=== PATIENT | male | born 1950 | race Caucasian/White ===

== ENCOUNTER 2023-01-11 14:55 | Outpatient (REF) | payer MEDICARE, OTHER, SELFPAY ==
[2023-01-11 14:39] LABS: Abs Immature Grans 0.02 10^3/uL (0.0-0.06); Absolute Basophil Count 0.04 10^3/uL (0.0-0.2); Absolute Eosinophil Count 0.04 10^3/uL (0.0-0.7); Absolute Lymphocyte Count 3.69 10^3/uL (1.2-3.4); Absolute Monocyte Count 0.79 10^3/uL (0.1-0.8); Absolute Neutrophil Count 2.97 10^3/uL (1.2-6.7); Basophils % 0.5; Eosinophils % 0.5; HCT 47.3 % (40.0-50.0); HGB 16.3 g/dL (13.5-17.5); Immature Grans % 0.3; Lymphocytes % 48.9; MCH 35.1 pg (27.0-33.0); MCHC 34.5 % (32.0-36.0); MCV 102 fL (80-95); MPV 10.6 fL (8.0-11.0); Monocytes % 10.5; Neutrophils % 39.3; Platelet Count 112 10^3/uL (130-400); RBC 4.64 10^6/uL (4.36-5.78); RDW 12.4 % (11.8-14.1); RDW-SD 46.6 fL; WBC 7.55 10^3/uL (4.4-10.8)
[2023-01-11 15:02] LABS: VALPROIC ACID 71.6 ug/mL
[2023-01-11 15:08] LABS: TSH (W/Ref FT4) 1.95 uIU/mL (0.36-3.74)
[2023-01-11 15:32] LABS: Vitamin D 25 Total 113.4 ng/mL (30-100)
== END 2023-01-11 14:56 | disposition home or self-care (01) ==
LOC: NCHCN 14:55
PROVIDERS: Visit Provider Family Medicine
DX: E07.9 Disorder of thyroid, unspecified (principal); E55.9 Vitamin D deficiency, unspecified; I10 Essential (primary) hypertension; Z51.81 Encounter for therapeutic drug level monitoring; Z79.899 Other long term (current) drug therapy; F31.89 Other bipolar disorder
CPT/HCPCS: 82306; 80164; 84443; 85025

== ENCOUNTER 2023-11-15 15:19 | Outpatient (REF) | payer MEDICARE, OTHER, SELFPAY ==
[2023-11-15 21:19] LABS: HCT 45.6 % (40.0-50.0); HGB 15.1 g/dL (13.5-17.5); MCH 34.6 pg (27.0-33.0); MCHC 33.1 % (32.0-36.0); MCV 105 fL (80-95); MPV 10.9 fL (8.0-11.0); Platelet Count 118 10^3/uL (130-400); RBC 4.36 10^6/uL (4.36-5.78); RDW 12.4 % (11.8-14.1); RDW-SD 48.8 fL; WBC 7.18 10^3/uL (4.4-10.8)
[2023-11-15 22:08] LABS: ALT 13 U/L (16-63); AST 19 U/L (15-37); Albumin 3.3 g/dL (3.4-5.0); Alkaline Phosphatase 148 U/L (46-116); Anion Gap 9.5 mmol/L (3-11); BUN 16 mg/dL (7-18); Bilirubin, Total 0.4 mg/dL (0.2-1.0); CO2 26.5 mmol/L (21.0-32.0); CREATININE 1.4 mg/dL (0.70-1.30); Calcium 8.8 mg/dL (8.5-10.1); Chloride 109 mmol/L (98-107); Estimated GFR 52.74 (mL/min/1.73m2); Glucose 98 mg/dL (74-106); Potassium 3.9 mmol/L (3.5-5.1); Sodium 145 mmol/L (136-145); TSH 2.31 uIU/Ml (0.36-3.74); Total Protein 7.3 g/dL (6.4-8.2)
== END 2023-11-15 15:20 | disposition home or self-care (01) ==
LOC: NCHCN 15:19
PROVIDERS: PCP Family Medicine; Visit Provider Family Medicine
DX: E03.9 Hypothyroidism, unspecified (principal); F31.89 Other bipolar disorder; Z79.899 Other long term (current) drug therapy; R79.89 Other specified abnormal findings of blood chemistry
CPT/HCPCS: 80053; 85027; 84443

== ENCOUNTER 2024-10-23 12:11 | Outpatient (REF) | payer MEDICARE, OTHER, SELFPAY ==
[2024-10-23 14:41] LABS: Abs Immature Grans 0.01 10^3/uL (0.0-0.06); Absolute Basophil Count 0.03 10^3/uL (0.0-0.2); Absolute Eosinophil Count 0.09 10^3/uL (0.0-0.7); Absolute Lymphocyte Count 2.97 10^3/uL (1.2-3.4); Absolute Monocyte Count 0.58 10^3/uL (0.1-0.8); Absolute Neutrophil Count 3.18 10^3/uL (1.2-6.7); Basophils % 0.4 %; Eosinophils % 1.3 %; HGB 14.7 g/dL (13.5-17.5); Immature Grans % 0.1 %; Lymphocytes % 43.3 %; MCH 34.8 pg (27.0-33.0); MCHC 33.4 % (32.0-36.0); MCV 104 fL (80-95); MPV 10.7 fL (8.0-11.0); Monocytes % 8.5 %; Neutrophils % 46.4 %; Platelet Count 116 10^3/uL (130-400); RBC 4.22 10^6/uL (4.36-5.78); RDW 12.5 % (11.8-14.1); RDW-SD 48.1 fL; WBC 6.86 10^3/uL (4.4-10.8)
[2024-10-23 14:55] LABS: ALT 9 U/L (16-63); AST 21 U/L (15-37); Albumin 3.1 g/dL (3.4-5.0); Alkaline Phosphatase 119 U/L (46-116); Anion Gap 5.1 mmol/L (3-11); BUN 16 mg/dL (7-18); Bilirubin, Total 0.58 mg/dL (0.2-1.0); CO2 27.9 mmol/L (21.0-32.0); CREATININE 1.3 mg/dL (0.70-1.30); Calcium 8.9 mg/dL (8.5-10.1); Chloride 109 mmol/L (98-107); Estimated GFR 57.29 (mL/min/1.73m2); Glucose 100 mg/dL (74-106); Potassium 4.8 mmol/L (3.5-5.1); Sodium 142 mmol/L (136-145); TSH (W/Ref FT4) 4.06 uIU/mL (0.36-3.74)
[2024-10-24 12:57] LABS: FREE T4 0.94 ng/dL (0.76-1.46)
== END 2024-10-23 12:12 | disposition home or self-care (01) ==
LOC: NCHCN 12:11
PROVIDERS: PCP Family Medicine; Visit Provider Family Medicine
DX: E03.9 Hypothyroidism, unspecified (principal); R42 Dizziness and giddiness
CPT/HCPCS: 80053; 84439; 84443; 85025

== ENCOUNTER 2024-12-09 16:00 | Outpatient (REF) | payer MEDICARE, OTHER, SELFPAY ==
[2024-12-09 21:59] LABS: TSH (W/Ref FT4) 2.97 uIU/mL (0.36-3.74)
== END 2024-12-09 16:01 | disposition home or self-care (01) ==
LOC: NCHCN 16:00
PROVIDERS: PCP Family Medicine; Visit Provider Family Medicine
DX: E03.9 Hypothyroidism, unspecified (principal)
CPT/HCPCS: 84443

== ENCOUNTER 2025-05-11 16:34 | Outpatient (REF) | payer MEDICARE, OTHER, SELFPAY ==
[2025-05-11 21:42] LABS: TSH (W/Ref FT4) 2.40 uIU/mL (0.36-3.74)
== END 2025-05-11 16:35 | disposition home or self-care (01) ==
LOC: NCHCN 16:34
PROVIDERS: PCP Family Medicine; Visit Provider Family Medicine
DX: E03.9 Hypothyroidism, unspecified (principal)
CPT/HCPCS: 84443

== ENCOUNTER → 2025-05-25 11:02 | Outpatient (BNVA) | payer MEDICARE, OTHER, SELFPAY | PROVIDERS: PCP Family Medicine; Referring Provider Family Medicine; Visit Provider Nurse Practitioner Gerontology | DX: N40.1 Benign prostatic hyperplasia with lower urinary tract symptoms (principal); N13.8 Other obstructive and reflux uropathy; R39.15 Urgency of urination; R32 Unspecified urinary incontinence; R39.9 Unspecified symptoms and signs involving the genitourinary system; G20.C Parkinsonism, unspecified | CPT/HCPCS: 99205; 81002; 51798 ==